=== PATIENT | male | born 1945 | race Caucasian/White ===

== ENCOUNTER 2019-01-05 08:55 | Outpatient (REF) | payer MEDICARE, BC, SELFPAY ==
[2019-01-05 19:50] LABS: Anion Gap 7.8 mmol/L (3-11); BUN 24 mg/dL (7-18); CO2 28.2 mmol/L (21.0-32.0); Calcium 9.1 mg/dL (8.5-10.1); Chloride 100 mmol/L (98-107); Glucose 102 mg/dL (70-100); Potassium 4.6 mmol/L (3.5-5.1); Sodium 136 mmol/L (136-145)
== END 2019-01-05 09:15 ==
LOC: NCHCN 08:55
PROVIDERS: PCP Physician Assistant; Visit Provider Physician Assistant Medical
DX: I10 Essential (primary) hypertension (principal)
CPT/HCPCS: 80048

== ENCOUNTER 2020-03-09 14:03 | Outpatient (REF) | payer MEDICARE, BC, SELFPAY ==
[2020-03-09 19:46] LABS: COMMENT (LAB VIEW ONLY) 9.32 mg/dL
== END 2020-03-09 14:23 ==
LOC: NCHCN 14:03
PROVIDERS: PCP Physician Assistant; Visit Provider Physician Assistant
DX: E11.9 Type 2 diabetes mellitus without complications (principal); E78.5 Hyperlipidemia, unspecified; K44.9 Diaphragmatic hernia without obstruction or gangrene
CPT/HCPCS: 82043; 82570